=== PATIENT | female | born 1965 | race Caucasian/White ===

== ENCOUNTER 2019-12-12 01:57 | Emergency (ER) | payer BC ==
--- NOTE | 2019-12-12 02:06 | EDM.PDOC ---
ED HPI GENERAL MEDICAL PROBLEM - General Chief Complaint: Lower Extremity Injury/Pain Stated Complaint: I think I broke my ankle Time Seen by Provider: 12/12/19 02:00 Source of Information: Reports: Patient, Old Records ([facility] EMR. No paper hospital chart available.), Other (Friend, Ru) History Limitations: Reports: Intoxication - History of Present Illness INITIAL COMMENTS - FREE TEXT/NARRATIVE: Patient was brought to the emergency room via private automobile by her friend for evaluation of left ankle pain after an unknown type of twisting injury, which occurred after she was drinking in a bar. She is an extremely poor historian secondary to her current intoxication and does not know how much she has been drinking. She denies any head injury, loss of consciousness, headaches, visual changes, neck/back pain, paresthesias, neurological deficits, or other complaints or injuries. No history of significant fall, although the patient was covered in mud on arrival. No recent history of abdominal pain, heartburn, nausea, diarrhea, melena, gross hematochezia, or any food intolerance, including fatty foods, etc.. The patient also denies any recent fever, cough, wheezing, dyspnea, etc.. Onset: Today, Sudden Onset Date: 12/12/19 Onset Time: 12:35 Duration: Constant Location: Reports: Lower Extremity, Left. 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 Left Ankle Pain Score (Numeric/FACES): 10 - Related Data Allergies Allergy/AdvReac Type Severity Reaction Status Date / Time amoxicillin Allergy Hives Verified 12/12/19 02:00 Sulfa (Sulfonamide Allergy Hives Verified 12/12/19 02:00 Antibiotics) Home Meds: Home Meds Escitalopram Oxalate 12/12/19 [History] buPROPion [Wellbutrin] 75 12/12/19 [History] Past Medical History Psychiatric History: Reports: Anxiety, Depression Endocrine/Metabolic History: Reports: Obesity/BMI 30+ Social & Family History - Tobacco Use Smoking Status *Q: Current Every Day Smoker Tobacco Use Within Last Twelve Months: Cigarettes Years of Tobacco use: 33 Packs/Tins Daily: 1 Packs/Tins Daily Comment: Patient started smoking at age 20. Used Tobacco, but Quit: No Smoking Cessation Information Provided To Patient: Yes - Alcohol Use Alcohol Use History: Yes Days Per Week of Alcohol Use: 2 Number of Drinks Per Day Comment: Patient denies alcohol abuse, however no binge drinking about 2 times per week. Date of Last Drink: 12/12/19 Alcohol Use Frequency: Binges - Recreational Drug Use Recreational Drug Use: No Drug Use in Last 12 Months: No - Living Situation & Occupation Occupation: Employed ([employer]) Review of Systems - Review of Systems Review Of Systems: Comprehensive ROS is negative, except as noted in HPI. ED EXAM, GENERAL - Physical Exam Exam: See Below Exam Limited By: No Limitations General Appearance: Alert, WD/WN, No Apparent Distress, Other (Moderate intoxication) Head: Atraumatic, Normocephalic. No: Facial Swelling, Facial Tenderness, Sinus Tenderness Neck: Normal Inspection, Supple, Non-Tender, Full Range of Motion. No: Lymphadenopathy (L), Lymphadenopathy (R), Thyromegaly Respiratory/Chest: No Respiratory Distress, Lungs Clear, Normal Breath Sounds, No Accessory Muscle Use, Chest Non-Tender. No: Pleural Rub, Retractions Cardiovascular: Normal Peripheral Pulses, Regular Rate, Rhythm, No Edema, No Gallop, No JVD, No Murmur, No Rub. No: Gallop/S3, Gallop/S4, Friction Rub Peripheral Pulses: 2+: Radial (L), Radial (R) GI/Abdominal: Normal Bowel Sounds, Soft, Non-Tender, No Organomegaly, No Distention, No Abnormal Bruit, No Mass, Pelvis Stable, Other (Obese). No: Guarding (Female) Exam: Deferred Rectal (Female) Exam: Deferred Back Exam: Normal Inspection, Full Range of Motion. No: CVA Tenderness (L), CVA Tenderness (R), Muscle Spasm, Paraspinal Tenderness, Vertebral Tenderness Extremities: No Pedal Edema, Normal Capillary Refill, Joint Swelling (Left lateral malleolus as below), Leg Pain (Moderate palpation pain over the left lateral malleolus with moderate swelling in the area but no evidence of joint instability, left proximal fibular/knee pain or effusion, or evidence of other injuries.), Limited Range of Motion (Secondary to ankle injury). No: Tavia's Sign Neurological: Alert, Oriented, CN II-XII Intact, Normal Cognition, Normal Gait, Normal Reflexes, No Motor/Sensory Deficits, Other (Moderate intoxication) Psychiatric: Normal Affect, Normal Mood Skin Exam: Warm, Dry, Intact, Ecchymosis (Multiple old areas of minor ecchymosis on abdomen and lower extremities), Wound/Incision (Multiple old scratches on the lower extremities). No: Diaphoretic Lymphatic: No Adenopathy ED TRAUMA EXTREMITY PROCEDURES - Splinting Left Lower Extremity Splint Site: Left ankle Pre-Procedure NV Status: Normal Post-Procedure NV Status: Normal Splint Material: Other (4 inch x 15 inch padded fiberglass splints x2 with additional 4 inch Rancho wrap) Splint Design: Stirrup, Other (Combined with plantar short leg) Applied & Form Fitted By: Provider Provider Post-Splint Application NV Check: NV Status Normal, Good Position Complications: No Course - Vital Signs Last Recorded V/S: Last Vital Signs Temp 36.6 C 12/12/19 02:04 Pulse 79 12/12/19 02:04 Resp 16 12/12/19 02:04 BP 113/72 12/12/19 02:04 Pulse Ox 95 12/12/19 02:04 Vital Signs - 24 hr 12/12/19 02:04 Temperature [ 36.6 C Temporal] Pulse, 79 Peripheral [ Pulse Oximetry] Respiratory 16 Rate Blood Pressure 113/72 [Right Upper Arm] O2 Sat by Pulse 95 Oximetry - Orders/Labs/Meds Orders: Active Orders 24 hr Category Date Time Status Ankle Min 3V Lt [CR] Stat Exams 12/12/19 02:06 Taken Durable Medical Equipment for Discharge [DME for Ot 12/12/19 02:30 Ordered Discharge] [COMM] Routine Durable Medical Equipment for Discharge [DME for Ot 12/12/19 02:30 Ordered Discharge] [COMM] Routine Obtain Past Medical Record [OM.PC] Routine Ot 12/12/19 02:06 Active Labs: None Meds: Medications Discontinued Medications Generic Name Dose Route Start Last Admin Trade Name Freq PRN Reason Stop Dose Admin Ketorolac Tromethamine 60 mg 12/12/19 02:52 12/12/19 02:58 Toradol IM 12/12/19 02:53 60 mg ONETIME ONE Administration - Radiology Interpretation Free Text/Narrative:: X-rays of the left ankle, complete, shows evidence of a nondisplaced, nonangulated hairline distal torus fracture of the fibula. Ankle mortise is intact. Departure - Departure Time of Disposition: 03:05 Disposition: Home, Self-Care 01 Condition: Good Clinical Impression: Intoxication, Tobacco abuse counseling, Mixed anxiety depressive disorder Fibula fracture Qualifiers: Encounter type: initial encounter Fibula location: distal Fracture type: closed Fracture morphology: torus Laterality: left Qualified Code(s): S82.822A - Torus fracture of lower end of left fibula, initial encounter for closed fracture - Discharge Information *PRESCRIPTION DRUG MONITORING PROGRAM REVIEWED*: Not Applicable *COPY OF PRESCRIPTION DRUG MONITORING REPORT IN PATIENT DAISY: Not Applicable Instructions: Steps to Quit Smoking, [id number], Crutch Use, Adult, [id number], Nondisplaced Fibular Ankle Fracture Treated With Immobilization, Adult, Health Risks of Smoking, Cast or Splint Care, Adult, [id number] Referrals: PCP,Unknown [Primary Care Provider] - Forms: ED Department Discharge, ED Return to Work/School Form Additional Instructions: 1. Followup with your regular provider in 7-10 days as directed with your regular provider with recommended repeat x-rays of your left ankle and probable placement of a short leg cast at that time. Bring these discharge instructions with you to that visit. 2. Tylenol 650 mg by mouth every 4 hours and/or OTC ibuprofen 2-3 tabs by mouth every 6 hours with food as directed./needed. You may stagger these medications for 48-72 hours only, which essentially means that you are receiving a pain medication about every 2 hours. Next dose of ibuprofen as needed in 6 hours secondary to medications given in the emergency room. 3. Ice packs and leg elevation as directed 4. Limited weightbearing on the right leg and foot with short leg splint and crutches to be used at all times as discussed 5. Work excuse- See Form 6. Stop all tobacco use HARPREET as directed/per provided information and consider contacting Quit LIne, etc.. 7. Strongly consider decrease of your alcohol use and/or complete discontinuation secondary to your current medical therapy 8. Immediately after this visit verify that your cellular telephone's voicemail has been activated and is empty. Also verify that your home telephone's answering machine is operating properly and has space to receive messages. Note that it is sometimes necessary for us to be able to contact you at a later date to discuss your medical care. 9. Please remember that we are ALWAYS here for you and want to answer any qu estions you may have. Feel free to call the hospital any time and we call you back HARPREET. Sepsis Event Note (ED) - Focused Exam Vital Signs: Vital Signs Temp Pulse Resp BP Pulse Ox 12/12/19 02:04 36.6 C 79 16 113/72 95 - Problem List & Annotations (1) Fibula fracture SNOMED Code(s): 96763614 Code(s): S82.409A - UNSP FRACTURE OF SHAFT OF UNSP FIBULA, INIT FOR CLOS FX Status: Acute Priority: High Onset Date: 12/12/19 Annotation/Comment:: Short leg/ankle splint applied as above with patient and provided crutches. Activity restrictions, etc. were discussed. Work excuse was provided. Close follow-up by regular provider as per discharge instructions. Initially the patient did not wish to have IM Toradol, however she did agree to this immediately prior to discharge from this facility. Qualifiers: Encounter type: initial encounter Fibula location: distal Fracture type: closed Fracture morphology: torus Laterality: left Qualified Code(s): S82.822A - Torus fracture of lower end of left fibula, initial encounter for closed fracture (2) Intoxication SNOMED Code(s): 02522255 Code(s): FFM5554 - Status: Acute Priority: High Onset Date: 12/12/19 Annotation/Comment:: Weekend binge drinking with the patient being an extremely poor historian secondary to her current intoxication. She denies previous alcohol abuse. Patient was extensively counseled concerning the contraindications of alcohol use with her current medical therapy for her anxiety depression disorder. (3) Mixed anxiety depressive disorder SNOMED Code(s): 327701414 Code(s): F41.8 - OTHER SPECIFIED ANXIETY DISORDERS Status: Chronic Priority: High Annotation/Comment:: Stable by history, however note intoxication and possible alcohol abuse as above. (4) Tobacco abuse counseling SNOMED Code(s): 954064502, 103574177, 723135201 Code(s): Z71.6 - TOBACCO ABUSE COUNSELING Status: Chronic Priority: Medium Annotation/Comment:: Tobacco cessation strongly encouraged with information provided at discharge. - Problem List Review Problem List Initiated/Reviewed/Updated: Yes - My Orders Last 24 Hours: My Active Orders 12/12/19 02:06 Ankle Min 3V Lt [CR] Stat Obtain Past Medical Record [OM.PC] Routine 12/12/19 02:30 Durable Medical Equipment for Discharge [DME for Discharge] [COMM] Routine Durable Medical Equipment for Discharge [DME for Discharge] [COMM] Routine - Assessment/Plan Last 24 Hours: My Active Orders 12/12/19 02:06 Ankle Min 3V Lt [CR] Stat Obtain Past Medical Record [OM.PC] Routine 12/12/19 02:30 Durable Medical Equipment for Discharge [DME for Discharge] [COMM] Routine Durable Medical Equipment for Discharge [DME for Discharge] [COMM] Routine Assessment:: As above Plan: As above. Extensive precautions were given to the patient and her friend, who are in agreement with the treatment plan. See Patient Instructions for further treatment and plan.
[2019-12-12] MEDS: Ketorolac 60 MG/2 ML SDV IM ONE (02:58)
== END 2019-12-12 03:05 | disposition home or self-care (01) ==
LOC: LL.ED 01:57
DX: S82.822A Torus fracture of lower end of left fibula, initial encounter for closed fracture (principal); F41.8 Other specified anxiety disorders; F10.129 Alcohol abuse with intoxication, unspecified; Z71.6 Tobacco abuse counseling; E66.9 Obesity, unspecified; F17.210 Nicotine dependence, cigarettes, uncomplicated; Z88.0 Allergy status to penicillin; Z88.2 Allergy status to sulfonamides; Z68.29 Body mass index [BMI] 29.0-29.9, adult; X50.1XXA Overexertion from prolonged static or awkward postures, initial encounter
CPT/HCPCS: 29125; 73610; 96372; 99284; J1885

== ENCOUNTER 2020-05-05 08:45 | Day surgery (SDC) | payer BC ==
[~2020-05-05 08:45] MED LIST: Midazolam 1 MG/ML 2 ML SDV ONE; Propofol 200 MG/20 ML SDV ONE
[2020-05-05] MEDS ORDERED: Sodium Chloride 0.9% 10 ML Syringe FLUSH PRN (09:00)
[2020-05-05] MEDS ORDERED: Lactated Ringers 1,000 ML IV SCH (09:00)
[2020-05-05] MEDS ORDERED: Midazolam 1 MG/ML 2 ML SDV ONE (10:12)
[2020-05-05] MEDS ORDERED: Propofol 200 MG/20 ML SDV ONE ×2 (10:12→11:01)
--- NOTE | 2020-05-05 10:51 | PCM.OPNOTE ---
- General Post-Op/Procedure Note Date of Surgery/Procedure: 05/05/20 Operative Procedure(s): Colonoscopy with Bx Findings: R Colitis Pre Op Diagnosis: Screening Post-Op Diagnosis: Same Anesthesia Technique: MAC Primary Surgeon: Maldonado Montiel Anesthesia Provider: Evangelina Dallas Complications: None Condition: Good
--- NOTE | 2020-05-05 10:52 | PCM.HPR ---
H & P Addendum review - H & P Addendum Review Date of Original H & P: 04/11/20 Date Reviewed: 05/05/20 Time Reviewed: 09:50 Patient was Examined: No Changes
--- NOTE | 2020-05-05 12:01 | OR ---
Date of Procedure: 05/05/2020 PREOPERATIVE DIAGNOSIS: Colon screening. POSTOPERATIVE DIAGNOSIS: Right colitis. PROCEDURE: Colonoscopy with biopsy. ANESTHESIA: IV sedation. PROCEDURE IN DETAIL: Patient was brought to the procedure room, where she was placed on her left side and IV sedation administered. Digital rectal exam was performed, which was normal. Colonoscope was inserted and advanced to the level of the cecum without difficulty. Cecal position was confirmed by identifying the appendiceal lumen and ileocecal valve. Prep was good and surfaces were adequately visualized. There was some thick liquid stool in the right colon and cecum that was mostly irrigated and suctioned. The cecum and right colon have diffuse petechiae scattered throughout. This appears to be consistent with mild colitis. There were no polyps, tumors, or active bleeding. I did take photographs and biopsies from the cecum and ascending colon. The rest of the colon and rectum were normal upon withdrawing the scope, retroflexion was normal. Air was removed, and the scope withdrawn. Patient tolerated the procedure well and returned to recovery in stable condition. Patient will be contacted with the biopsies when they return. If no concerning features are present, I would recommend she undergo a routine colon screening again in 10 years. FELICITA BIRD MD /[id number]
== END 2020-05-05 11:56 | disposition home or self-care (01) ==
LOC: LL.SDS 08:45
PROVIDERS: ATTEND Surgery
DX: Z12.11 Encounter for screening for malignant neoplasm of colon (principal); K52.9 Noninfective gastroenteritis and colitis, unspecified; E78.5 Hyperlipidemia, unspecified; F17.210 Nicotine dependence, cigarettes, uncomplicated; Z79.899 Other long term (current) drug therapy; Z88.1 Allergy status to other antibiotic agents; Z88.8 Allergy status to other drugs, medicaments and biological substances; Z88.2 Allergy status to sulfonamides
CPT/HCPCS: 00812; J2250; J2704; J7120